=== PATIENT | female | born 1985 | race Hispanic/Latino ===

== ENCOUNTER 2017-01-15 18:14 | Emergency (ER) | payer OTHER ==
[2017-01-15 18:24] VITALS: TEMP 98; O2SAT 100
--- NOTE | 2017-01-15 19:17 | ED PDOC ---
HPI: Abdomen Time Seen by Provider: 01/15/17 18:27 Chief Complaint (Nursing): Chest Pain Chief Complaint (Provider): Abdominal pain History Per: Patient, Family Onset/Duration Of Symptoms: Days (6-7) Outside of [place] travel?: No Current Symptoms Are (Timing): Still Present Pain Scale Rating Of: 7 Location Of Pain/Discomfort: Diffuse, LLQ Quality Of Discomfort: Pressure, Stabbing Associated Symptoms: Nausea, Vomiting, Loss Of Appetite, Back Pain, Chest Pain, Constipation. denies: Fever, Chills, Diarrhea, Urinary Symptoms Exacerbating Factors: Food Alleviating Factors: None Last Bowel Movement: Yesterday Additional Complaint(s): Pt is 31 yo F with pmh ulcer, pre-diabetes, fibroids presenting to ED with abdominal pain x1 week, loss of appetite, nausea and one episode of vomiting yesterday. Pain is mild and diffuse across abdomen, but significantly worse in LLQ. Pt rates the pain 7/10, describes it as "squeezing, stabbing and pressure, " and states that it radiates to the chest. PMH: ulcer, fibroids, pre-diabetes Past surgical hx: fibroid removal, breast implants, x2 Family Hx: unknown, pt states she was adopted OBGYN hx: ,1 miscarriage. x2. LMP: 2 weeks ago, regular cycle. Social hx: smokes 1-2 cig/day for past 10 yrs. Social drinker, denies drug use. Abnormal Vaginal Bleeding: No Last Menstral Period: 2 weeks ago : 3 Para: 2 ( x2) Miscarriage: 1 Past Medical History Vital Signs: Last Vital Signs Temp 98.0 F 01/15/17 18:22 Pulse 72 01/15/17 18:22 Resp 16 01/15/17 18:22 BP 125/73 01/15/17 18:22 Pulse Ox 100 01/15/17 19:40 - Medical History Other PMH: pre-diabetes, ulcer, uterine fibroid - Surgical History Surgical History: (x2) Other surgeries: breast implants - Family History Family History: States: Unknown Family Hx - Social History Current smoker - smoking cessation education provided: Yes (1-2 cig/day for 10 yrs) Alcohol: Social Drugs: Denies - Immunization History Hx Tetanus Toxoid Vaccination: Yes Hx Influenza Vaccination: No Hx Pneumococcal Vaccination: No - Home Medications Home Medications: Ambulatory Orders Medication Instructions Recorded Dextromethorphan HBr [Cough 15 mg PO BID #14 capsule 11/22/15 Control] Diazepam [Valium] 10 mg PO Q6 #8 tab 11/22/15 Ibuprofen [Motrin] 600 mg PO Q6 #30 tab 11/22/15 Oxycodone HCl/Acetaminophen 1 tab PO Q6 PRN #10 tab 11/24/15 [Percocet 325 mg-5 mg] - Allergies Allergies/Adverse Reactions: Allergies Allergy/AdvReac Type Severity Reaction Status Date / Time No Known Allergies Allergy Verified 01/15/17 18:22 Review of Systems ROS Statement: Except As Marked, All Systems Reviewed And Found Negative Gastrointestinal: Positive for: Nausea, Vomiting, Abdominal Pain, Constipation Physical Exam - Reviewed Vital Signs Reviewed: Yes - Physical Exam Appears: Positive for: Uncomfortable, In Acute Distress Head Exam: Positive for: ATRAUMATIC, NORMAL INSPECTION, NORMOCEPHALIC Skin: Positive for: Normal Color, Warm, Dry. Negative for: Jaundice Eye Exam: Positive for: Normal appearance, EOMI, PERRL ENT: Positive for: Normal ENT Inspection. Negative for: Pharyngeal Erythema Neck: Positive for: Painless ROM, Supple Cardiovascular/Chest: Positive for: Regular Rate, Rhythm. Negative for: Murmur Respiratory: Positive for: Normal Breath Sounds. Negative for: Wheezing, Respiratory Distress Gastrointestinal/Abdominal: Positive for: Bowel Sounds (+ in all 4 quadrants), Soft, Tenderness (LLQ tenderness more severe than mild diffuse tenderness). Negative for: Mass, Distended, Guarding, Rebound Extremity: Positive for: Normal ROM. Negative for: Pedal Edema, Calf Tenderness , Deformity Neurologic/Psych: Positive for: Alert, Oriented - ECG O2 Sat by Pulse Oximetry: 100 - Progress ED Course And Treament: Vitals assessed, stable EKG Urine neg Labs ordered CMP, Lipase, Type/screen, coags Imaging: CT abdomen/pelvis Zofran Morphine Pt transfered to Dr. Vail at 7:50 pm Disposition - Clinical Impression Clinical Impression: Abdominal pain - Disposition Disposition: Transfer of Care (to Dr. Vail) Disposition Time: 19:50 Condition: STABLE
[2017-01-15] MEDS ORDERED: Sodium Chloride 0.9% 1,000 ML IV STA (19:31)
[2017-01-15 20:09] LABS: BASO # 0.1 K/uL (0.0-0.2); BASO % 0.5 % (0.0-2.0); EOS # 0.2 K/uL (0.0-0.7); EOS % 2.1 % (0.0-4.0); HEMOGLOBIN 13.5 g/dL (12.0-16.0); LYMPH # 3.7 K/uL (1.0-4.3); LYMPH % 32.9 % (20.0-40.0); MEAN CELL VOLUME 86.8 fl (81.0-99.0); MEAN CORPUSCULAR HEMOGLOBIN 28.9 pg (27.0-31.0); MEAN CORPUSCULAR HGB CONC 33.4 g/dL (33.0-37.0); MEAN PLATELET VOLUME 9.3 fl (7.2-11.7); MONO # 0.7 K/uL (0.0-0.8); MONO % 6.7 % (0.0-10.0); NEUT # 6.4 K/uL (1.8-7.0); NEUT % 57.8 % (50.0-75.0); RBC 4.68 Mil/uL (3.80-5.20); RED CELL DISTRIBUTION WIDTH 14.3 % (11.5-14.5); WHITE BLOOD COUNT 11.1 K/uL (4.8-10.8)
[2017-01-15 20:20] LABS: ALB/GLOB RATIO 1.5 (1.0-2.1); ALBUMIN 4.3 g/dL (3.5-5.0); ALT/SGPT 42 U/L (9-52); AST/SGOT 24 U/L (14-36); BLOOD UREA NITROGEN 15 mg/dl (7-17); CALCIUM 9.4 mg/dL (8.4-10.2); GFR AFRICAN-AMERICAN > 60; GFR NON-AFRICAN AMERICAN > 60; LIPASE 156 U/L (23-300)
[2017-01-15 20:40] LABS: INR 1.1 (0.9-1.2); PARTIAL THROMBOPLASTIN TIME 29.3 Seconds (25.6-37.1); PROTHROMBIN TIME 11.7 Seconds (9.8-13.1)
[2017-01-15] MEDS ORDERED: Iohexol 300 100 ML IJ ONE (21:11)
[2017-01-15] MEDS ORDERED: Sodium Chloride 0.9% 50 ML IV ONE (21:11)
--- NOTE | 2017-01-15 21:30 | ED PDOC ---
- Laboratory Results Result Diagrams: 01/15/17 19:45 01/15/17 19:45 Interpretation Of Abn Labs: No emergently significant lab abnormalities - ECG O2 Sat by Pulse Oximetry: 100 Disposition Counseled Patient/Family Regarding: Studies Performed, Diagnosis, Need For Followup - Clinical Impression Clinical Impression: Pelvic congestion syndrome - POA Present On Arrival: None - Disposition [facility] ([facility] POR LA [facility]NANA A HACER MAXIMUS CODY EN 3-5 KING) Disposition: Routine/Home Disposition Time: 23:32 Condition: IMPROVED Additional Instructions: Sndrome de congestin plvica sndrome de congestin plvica es maximus condicin que causa dolor plvico cr lindsay. Se chapito que es causada por problemas con las venas en el ramiro plvica. El ramiro de la pelvis est dentro de la parte inferior de klein vientre (abdomen). La comprensin de las venas en el ramiro plvica Las venas son los vasos sanguneos que transportan la micah de vuelta al coraz n. En algunas mujeres, las venas en el abdomen inferior pueden dejar de funcionar donny. La micah puede empezar a acumularse en el interior de las venas. Cuando esto sucede, las venas de la pelvis pueden ampliar y cambiar de forma, rosita las venas varicosas. Mccoole puede conducir al dolor y otros sntomas del sndrome de congestin plvica. Qu causa el sndrome de congestin plvica? Los mdicos todava estn aprendiendo acerca de las causas del sndrome de congestin plvica. agrandamiento de las venas de la pelvis pueden ser parte de la causa. Sin embargo, muchas mujeres tienen venas dilatadas y no hay sntomas. El sndrome ocurre principalmente en las mujeres en edad frtil. Puede ser ms comn en mujeres que gardner dado a chato a ms de un nio. Las venas de la pelvis se hacen ms grandes grant el embarazo. Pueden permanecer olesya despus de los s ntomas del embarazo y la causa. Las hormonas tambin pueden ser parte de la causa. El estrgeno hace que las venas ms amplio (dilata). Mccoole puede ser la razn por la condicin no es comn despus de la menopausia. Los niveles de estrgeno son ms bajos despus de la menopausia. Otras hormonas tambin pueden provocar que las venas que se amplan y causan sntomas. Usted puede tener un mayor riesgo de sndrome de congestin plvica si may dado a chato a ms de un nio. Usted tambin puede tener un riesgo mayor si otros miembros de klein kelsie tienen. Los sntomas del sndrome de congestin plvica El principal sntoma de sndrome de congestin plvica es el dolor plvico que dura al menos 6 meses. Ira dolor a menudo se inicia por primera vez grant o despus de un embarazo. Se puede empeorar despus de un embarazo posterior. El dolor puede ser maximus sensacin de pesadez o dolor. O el dolor puede ser monie. Por lo general, el dolor es slo en un lado, a menudo la izquierda. A veces se puede sentir en ambos lados. El dolor es a menudo peor al final del da. Algunas cosas pueden empeorar el dolor, tales rosita: De pie grant mucho tiempo El cambio de postura Tener relaciones sexuales Para caminar Algunas mujeres tambin tienen sntomas tales rosita: Dolor antes o grant shreya perodos Sintiendo maximus necesidad repentina de orinar venas dilatadas y distorsionadas en las nalgas, los genitales externos (vulva), o los muslos El diagnstico de sndrome de congestin plvica sndrome de congestin plvica no es fcil de diagnosticar. El dolor plvico es comn, y puede ser causada por muchas cosas. El dolor plvico puede ser el resultado de problemas con el sistema reproductivo, rosita los ovarios y el tero. Puede ser causada por el sistema urinario, rosita la vejiga. Puede ser causada por el sistema gastrointestinal, tales rosita el intestino grueso. Y puede ser causada por los msculos o huesos. condiciones psicolgicas tales rosita hanny hutson estn vinculados a dolor plvico crnico. Klein mdico tendr que considerar muchas causas posibles antes de diagnosticar el sndrome de congestin plvica. Klein mdico de atencin primaria o un (/ TOWN MANAGER) mdico obstetricia y ginecologa pueden diagnosticar la enfermedad. Klein mdico le preguntar sobre klein historia cl ric y shreya sntomas. Rodrick tendr un examen fsico. Mccoole probablemente incluir un examen plvico. Rodrick puede ser necesario algunas pruebas, tales rosita: Los anlisis de orina, para verificar si hay problemas con klein sistema urinario Los anlisis de micah, para verificar si hay embarazo, enfermedades de transmisin sexual, y la anemia El ultrasonido plvico, para buscar crecimientos en la pelvis ecografa Doppler, para comprobar el flujo de micah en los vasos sanguneos de la pelvis Tomografa computarizada o resonancia magntica de imgenes ms detalladas La laparoscopia diagnstica, maximus ciruga mnimamente invasiva para descartar otras causas de dolor plvico Venografa, un procedimiento para kylie radiografas de las venas de la pelvis El tratamiento para el sndrome de congestin plvica Klein mdico le tratar de acuerdo a shreya sntomas. Las posibles opciones de tratamiento incluyen: Liberadora de gonadotropina medicamentos hormonales, que pueden aliviar el dolor medicamentos hormonales progestina, que tambin pueden aliviar el dolor Escleroterapia, para apagar las venas daadas Embolizacin, para apagar las venas daadas La ciruga para extirpar venas daadas La ciruga para extirpar el tero y los ovarios Klein mdico puede sugerir a partir de medicamentos. Si no se alivian los sntomas , el mdico puede recomendar un procedimiento para tratar la condicin. Shreya s ntomas pueden disminuir a medida que entran en la menopausia. Cundo llamar al proveedor de atencin mdica Llame a klein mdico de inmediato si usted tiene cualquiera de los siguientes: Los sntomas que no mejoran con el tratamiento Los sntomas que empeoran Revisor mdico: Mandy Ornelas MD, PhD Revisor mdico: Aundrea Jerez, PhD, CNM, [employer] ltima revisin: 12/31/[id number] [employer] [place] [id number]. Todos los derechos reservados. Esta informacin no est destinada a sustituir la atencin mdica profesional. Siempre siga las instrucciones de klein m dico. Prescriptions: Naproxen [Naprosyn] 1 tab PO BID PRN #60 tab PRN Reason: Pain
--- NOTE | 2017-01-15 22:10 | CT ---
EXAM: CT Abdomen and Pelvis With Intravenous Contrast CLINICAL HISTORY: 31 years old, female; Pain; Abdominal pain; Localized; Left lower quadrant (llq); Prior surgery; Surgery date: 6+ months; Surgery type: 2 c-sections; Additional info: Llq pain TECHNIQUE: Axial computed tomography images of the abdomen and pelvis with intravenous contrast. All CT scans at this facility use one or more dose reduction techniques, viz.: automated exposure control; ma/kV adjustment per patient size (including targeted exams where dose is matched to indication; i.e. head); or iterative reconstruction technique. Coronal and sagittal reformatted images were created and reviewed. CONTRAST: 90 mL of [id number] administered intravenously. COMPARISON: No relevant prior studies available. FINDINGS: Lower thorax: Minimal atelectasis. ABDOMEN: Liver: Mild fatty infiltration. Gallbladder and bile ducts: No calcified stones. No ductal dilation. Pancreas: No ductal dilation. No mass. Spleen: Few splenic calcifications. No splenomegaly. Adrenals: No mass. Kidneys and ureters: Too small to characterize lesion within LEFT kidney. No hydronephrosis. Stomach and bowel: No definite mural thickening. Few minimally distended loops of small bowel, likely ileus. Appendix: Normal caliber. No inflammation. PELVIS: Bladder: Unremarkable. Reproductive: Small ovarian follicles. ABDOMEN and PELVIS: Intraperitoneal space: Trace free fluid within pelvis. No free air. Bones/joints: Sclerosis about sacroiliac joints. Soft tissues: Mild focal eventration midline anterior abdominal wall. Pfannenstiel scar. Vasculature: Mildly prominent vessels within LEFT pelvis. No aneurysm. Lymph nodes: No pathologically enlarged lymph nodes. IMPRESSION: 1. Mildly prominent vessels within LEFT hemipelvis, possibly pelvic congestion syndrome. 2. Incidental/non-acute findings are described above.
[2017-01-15 23:59] VITALS: BP 137/71; PULSE 82; RESP 18
--- NOTE | 2017-01-16 16:07 | CARD ---
APPROVED REPORT EKG Measurement Heart [id number] <Conclusion> Sinus bradycardia with sinus arrhythmia Otherwise normal ECG
== END 2017-01-16 00:07 | disposition home or self-care (01) ==
LOC: H.ER 18:14
DX: R10.32 Left lower quadrant pain (principal); R07.89 Other chest pain; K59.00 Constipation, unspecified